=== PATIENT | male | born 1995 | race Caucasian/White ===

== ENCOUNTER 2022-01-11 17:24 | Emergency (ER) | payer SELFPAY ==
[~2022-01-11] VITALS: Ht 165.1 cm; Wt 83.9 kg
[2022-01-11 17:45] VITALS: BP 121/47
== END 2022-01-11 22:33 | disposition left against medical advice (07) ==
LOC: EMS 17:31
DX: Z53.21 Procedure and treatment not carried out due to patient leaving prior to being seen by health care provider (principal)